=== PATIENT | male | born 1940 | race Caucasian/White ===

== ENCOUNTER 2016-12-14 18:14 | Day surgery (SDC) | payer OTHER ==
[~2016-12-14] VITALS: Ht 177.8 cm; Wt 84.1 kg
[2016-12-14 19:30] LABS: HEMATOCRIT 42.3 % (38.0-50.0); MCH 32.5 PG (29.0-34.0); MCHC 33.8 G/DL (30.0-36.0); MCV 96.1 FL (86-99); MEAN PLAT.VOLUME 10.8 uM^3 (9.0-12.4); PLATELET COUNT 226 K/uL (156-360); RBC DIS.WIDTH-CV 12.9 % (11.8-14.6); RBC DIS.WIDTH-SD 46.3 % (39-53); WHITE BLOOD COUNT 10.2 K/uL (4.1-10.2)
[2016-12-14 19:38] LABS: CHLORIDE 102 mEq/L (99-109); POTASSIUM 4.4 mEq/L (3.7-5.4); SODIUM 139 mEq/L (136-147)
[2016-12-14 19:40] LABS: GLUCOSE 96 mg/dL (70-99)
[2016-12-14 19:41] LABS: ANION GAP 11 MEQ/L (2-14)
[2016-12-14 19:44] LABS: GFR ESTIMATE (CALCULATED) 42 mL/min/; UREA NITROGEN (BUN) 22 mg/dL (9-23)
[2016-12-14 20:41] LABS: ADD MIUA? NO; BILIRUBIN NEGATIVE; BLOOD NEGATIVE; COLOR STRAW ((YELLOW)); GLUCOSE (STRIP) NEGATIVE; KETONES NEGATIVE; LEUKOCYTES NEGATIVE; NITRITE NEGATIVE; PROTEIN (STRIP) NEGATIVE; SPECIFIC GRAVITY 1.008 (1.000-1.030); UCUL ADDED? NO; UROBILINOGEN 0.2 MG/DL (0.2-1.0)
[2016-12-15] VITALS (7 sets, daily range): BP systolic 102–132; BP diastolic 50–76
[2016-12-15 06:01] LABS: HEMATOCRIT 38.9 % (38.0-50.0); MCH 32.6 PG (29.0-34.0); MCHC 33.4 G/DL (30.0-36.0); MCV 97.5 FL (86-99); MEAN PLAT.VOLUME 10.5 uM^3 (9.0-12.4); PLATELET COUNT 193 K/uL (156-360); RBC DIS.WIDTH-CV 12.8 % (11.8-14.6); RED BLOOD COUNT 3.99 M/uL (4.00-5.50); WHITE BLOOD COUNT 7.4 K/uL (4.1-10.2)
[2016-12-15 06:31] LABS: ANION GAP 7 MEQ/L (2-14); CHLORIDE 102 MEQ/L (99-109); GFR ESTIMATE (CALCULATED) 45 mL/min/; SAMPLE HEMOLYSIS CHECK 0; SAMPLE ICTERIC CHECK 0; SAMPLE LIPEMIA CHECK 0; SODIUM 137 MEQ/L (136-147); UREA NITROGEN (BUN) 24 mg/dL (9-23)
[2016-12-15 06:32] LABS: GLUCOSE 145 mg/dL (70-99); POTASSIUM 5.3 MEQ/L (3.7-5.4)
[2016-12-16 03:49] VITALS: BP 125/61
[2016-12-16 07:45] VITALS: BP 131/61
[2016-12-16] MEDS ORDERED: INCRUSE ELLI62.5 MCG IH (10:19)
[2016-12-16] MEDS ORDERED: LISINOPRIL10 MG PO (10:19)
[2016-12-16] MEDS ORDERED: GABAPENTIN300 MG PO (10:20)
[2016-12-16] MEDS ORDERED: HYDROCHLOROTHIA25 MG PO (10:20)
[2016-12-16] MEDS ORDERED: DOXAZOSIN MESYLA1 MG PO (10:20)
[2016-12-16] MEDS ORDERED: LANSOPRAZOLE30 MG PO (10:21)
[2016-12-16] MEDS ORDERED: TRAMADOL HCL50 MG PO (10:21)
[2016-12-16] MEDS ORDERED: COLBENEMID1 TABLET PO (10:21)
[2016-12-16] MEDS ORDERED: ALBUTEROL2.5 MG/3 M IH (10:22)
[2016-12-16] MEDS ORDERED: BREO ELLIPTA I1 EACH IH (10:22)
[2016-12-16] MEDS ORDERED: BUDESONIDE0.5 MG/2 M IH (10:22)
[2016-12-16] MEDS ORDERED: ASPIR-LOW81 MG PO (10:22)
[2016-12-16] MEDS ORDERED: TYLENOL WITH C1 EACH PO (10:23)
[2016-12-16] MEDS ORDERED: CYANOCOBALAM1000 MCG PO (10:23)
[2016-12-16] MEDS ORDERED: FISH OIL 1,0001 EAC7 PO (10:23)
[2016-12-16] MEDS ORDERED: INDOCIN50 MG PO (10:23)
[2016-12-16] MEDS ORDERED: VITAMIN D31000 UNI2 PO (10:25)
[2016-12-16 11:35] VITALS: BP 139/70
[2016-12-16 15:55] VITALS: BP 130/68
[2016-12-16] MEDS ORDERED: COLACE100 MG PO (18:51)
[2016-12-16] MEDS ORDERED: HYDROCODON-ACE1 EAC7 PO (18:51)
[2016-12-16] MEDS ORDERED: NEURONTIN300 MG PO (18:57)
== END 2016-12-16 20:10 | disposition home or self-care (01) ==
LOC: EME 18:14 → RME 18:14 → SDC 21:50 → 2EAST 23:23 → 2SOUTH 23:23 → ENRESERV 23:40 → 2EAST 12-15 00:30
PROVIDERS: Physician Assistant; Thoracic Surgery (Cardiothoracic Vascular Surgery)
PROC: 0DTJ0ZZ Resection of Appendix, Open Approach (ICD-10-PCS; principal; 2016-12-14)
DX: K35.80 Unspecified acute appendicitis (principal); I10 Essential (primary) hypertension; J44.9 Chronic obstructive pulmonary disease, unspecified; Z99.81 Dependence on supplemental oxygen; G47.33 Obstructive sleep apnea (adult) (pediatric); I71.4 Abdominal aortic aneurysm, without rupture; I72.3 Aneurysm of iliac artery; N40.0 Benign prostatic hyperplasia without lower urinary tract symptoms; Z87.891 Personal history of nicotine dependence; I25.2 Old myocardial infarction; K21.9 Gastro-esophageal reflux disease without esophagitis
CPT/HCPCS: 71020; 74176; 80048; 81003; 85027; 86850; 86900; 86901; 88304; 93005; 94640; 94640 76; 94660; 94760; 94799; 99202; 99281; 99285; G0378; G8978 GP CH; G8979 GP CH; G8980 GP CH; G8987 GO CH; G8988 GO CH; G8989 GO CH; J0330; J1100; J1170; J1335; J1644; J2270; J2405; J2710; J3010; J7030; J7050; J7120